=== PATIENT | male | born 1970 | race African-American/Black ===

== ENCOUNTER 2016-07-27 22:33 | Emergency (ER) | payer MEDICAID ==
[~2016-07-27] VITALS: Ht 177.8 cm; Wt 113.5 kg
[2016-07-27 22:53] VITALS: BP 148/112
[2016-07-27] MEDS ORDERED: PROPARACAINE OPHTH 0.5%, 15ML ONE (23:00)
[2016-07-27] MEDS ORDERED: FLUORESCEIN OPHTHALMIC 1 MG STRIP ONE (23:00)
== END 2016-07-28 00:22 | disposition home or self-care (01) ==
LOC: ED 23:37
DX: H10.022 Other mucopurulent conjunctivitis, left eye (principal)
CPT/HCPCS: 99283